=== PATIENT | male | born 1955 | race Caucasian/White ===

== ENCOUNTER 2019-10-24 10:42 | Emergency (ER) | payer OTHER ==
--- NOTE | 2019-10-24 11:03 | EDM.PDOC ---
ED HPI GENERAL MEDICAL PROBLEM - General Chief Complaint: Head Injury Stated Complaint: PT FELL ON ICE AND HIT HEAD 4 DAYS AGO Time Seen by Provider: 10/24/19 10:55 Source of Information: Reports: Patient History Limitations: Reports: No Limitations - History of Present Illness INITIAL COMMENTS - FREE TEXT/NARRATIVE: Patient is a 64-year-old male who fell 2 times last week the last being 5 days ago hitting the back of his head. Patient felt a "popping sensation" with the second fall and has had a mild 3 out of 10 headache since. There is been no vomiting. Patient denies any dizziness numbness paresthesias or weakness. He denies any change in his vision or hearing. He has taken nothing for his headache pain symptoms. Patient is on no blood thinners. He says the only medication he takes is amlodipine. He is only here because he contacted his doctor at the [facility] and when he found out he had hit his head twice recommend he come to the emergency department. Duration: Day(s): (five) Location: Reports: Head Quality: Reports: Ache Severity: Mild Improves with: Reports: None Worsens with: Reports: None Context: Reports: Trauma Associated Symptoms: Reports: No Other Symptoms headache Pain Score (Numeric/FACES): 3 - Related Data Allergies Allergy/AdvReac Type Severity Reaction Status Date / Time Unable to Assess Allergy Unverified 10/24/19 11:02 Home Meds: Home Meds Aspirin 81 mg PO DAILY 10/24/19 [History] amLODIPine Besylate [Amlodipine Besylate] 10 mg PO DAILY 10/24/19 [History] ED ROS GENERAL - Review of Systems Review Of Systems: Comprehensive ROS is negative, except as noted in HPI. ED EXAM, HEAD INJURY - Physical Exam Exam: See Below Text/Narrative:: Exam: See Below Exam Limited By: No Limitations Head: Atraumatic no hematoma or ecchymosis appreciated. Scalp tenderness. Neck: Normal Inspection. No: Carotid Bruit, Lymphadenopathy (R) Respiratory/Chest: No Respiratory Distress, Lungs Clear, Normal Breath Sounds, No Accessory Muscle Use. No: Chest Non-Tender Cardiovascular: Normal Peripheral Pulses, Regular Rate, Rhythm, No Edema, No JVD GI/Abdominal: Normal Bowel Sounds, Tender. No: Non-Tender, Splenomegaly Back Exam: Normal Inspection. No: CVA Tenderness (R) Extremities: Normal Inspection. No: No Pedal Edema Neurological: Alert, Oriented, Normal Cognition at positive lateral gaze nystagmus with symptoms of vertigo. Psychiatric: Normal Affect Skin Exam: Warm Lymphatic: No Adenopathy Ears: Normal TMs Course - Vital Signs Text/Narrative:: Patient was given meclizine for his vertigo and his head CT returned as negative for any acute disease. I discharged him home with a prescription for meclizine and Reglan to use as needed vertigo symptoms. He is to return to emergency department if worse and follow-up with PCP or neurologist if symptoms continue. Last Recorded V/S: Last Vital Signs Temp 36.9 C 10/24/19 10:54 Pulse 76 10/24/19 10:54 Resp 20 10/24/19 10:54 BP 156/88 H 10/24/19 10:54 Pulse Ox 96 10/24/19 10:54 - Orders/Labs/Meds Meds: Medications Discontinued Medications Generic Name Dose Route Start Last Admin Trade Name Freq PRN Reason Stop Dose Admin Meclizine HCl 25 mg 10/24/19 11:08 10/24/19 11:11 Antivert PO 10/24/19 11:09 25 mg ONETIME ONE Administration Departure - Departure Time of Disposition: 12:11 Disposition: Home, Self-Care 01 Condition: Good Clinical Impression: Vertigo, History of recent traumatic injury of head - Discharge Information Instructions: Head Injury, Adult, [id number], Dizziness, [id number] Referrals: Molina Vieira MD [Primary Care Provider] - Care Plan Goals: The following information is given to patients seen in the emergency department who are being discharged to home. This information is to outline your options for follow-up care. We provide all patients seen in our emergency department with a follow-up referral. The need for follow-up, as well as the timing and circumstances, are variable depending upon the specifics of your emergency department visit. If you don't have a primary care physician on staff, we will provide you with a referral. We always advise you to contact your personal physician following an emergency department visit to inform them of the circumstance of the visit and for follow-up with them and/or the need for any referrals to a consulting specialist. The emergency department will also refer you to a specialist when appropriate. This referral assures that you have the opportunity for follow-up care with a specialist. All of these measure are taken in an effort to provide you with optimal care, which includes your follow-up. Under all circumstances we always encourage you to contact your private physician who remains a resource for coordinating your care. When calling for follow-up care, please make the office aware that this follow-up is from your recent emergency room visit. If for any reason you are refused follow-up, please contact the [facility] Emergency Department at and asked to speak to the emergency department charge nurse. Sepsis Event Note - Focused Exam Vital Signs: Vital Signs Temp Pulse Resp BP Pulse Ox 10/24/19 10:54 36.9 C 76 20 156/88 H 96 Date Exam was Performed: 10/24/19 Time Exam was Performed: 12:09
[2019-10-24] MEDS ORDERED: Meclizine 25 MG Tab PO ONE (11:08)
--- NOTE | 2019-10-24 11:45 | CT ---
Head CT Technique: Multiple axial sections through the brain were obtained. Intravenous contrast was not utilized. Comparison: No prior intracranial imaging. Findings: Ventricles along with basal cisterns and sulci are convexities are mildly prominent. No abnormal parenchymal densities are seen. No evidence of intracranial hemorrhage. No midline shift or mass effect is seen. Bone window settings were reviewed. Visualized paranasal sinuses show nothing acute. Mastoid sinuses also show nothing acute. No acute abnormality is appreciated. Impression: 1. Mild generalized atrophy. 2. No acute intracranial abnormality is appreciated. Diagnostic code #2 Study was dictated in [place] Standard Time
[2019-10-24 12:32] VITALS: BP 129/82; PULSE 78
== END 2019-10-24 12:26 | disposition home or self-care (01) ==
LOC: MW.ED 10:42
DX: R42 Dizziness and giddiness (principal); R51 Headache; Z79.82 Long term (current) use of aspirin
CPT/HCPCS: 70450; 99284; A9270